=== PATIENT | male | born 1990 ===

== ENCOUNTER 2017-02-09 14:02 | Emergency (ER) | payer OTHER ==
[~2017-02-09] VITALS: Ht 172.7 cm; Wt 68.0 kg
== END 2017-02-09 16:01 | disposition home or self-care (01) ==
LOC: ER 14:02
DX: S90.222A Contusion of left lesser toe(s) with damage to nail, initial encounter (principal); W22.8XXA Striking against or struck by other objects, initial encounter; Y93.89 Activity, other specified; Y92.89 Other specified places as the place of occurrence of the external cause; Y99.8 Other external cause status